=== PATIENT | female | born 1970 | race Caucasian/White ===

== ENCOUNTER → 2020-07-06 | Outpatient (CLI) | payer OTHER ==
[~2020-07-06] MED LIST: BIRTH CONTROL PILLS; FERROUS SU325 MG/TAB PO; PREDNISONE20 MG PO; PRENATAL VITAMI1 TA5 PO
== END ==
LOC: MC.RAD 13:10
DX: Z12.31 Encounter for screening mammogram for malignant neoplasm of breast (principal)

== ENCOUNTER 2023-08-15 06:43 | Day surgery (SDC) | payer BC ==
[~2023-08-15] VITALS: Ht 175.3 cm; Wt 81.6 kg
[~2023-08-15 06:43] MED LIST changes: +LR 1,000 ML IV SCH; +Ondansetron 4 MG/2 ML VIAL IV PRN
[2023-08-15] MEDS ORDERED: ZYRTEC 10MG10 MG PO (07:07)
[2023-08-15 07:34] VITALS: BP 122/86; PULSE 70; TEMP 97.9
[2023-08-15 09:05] VITALS: BP 107/78; PULSE 75; TEMP 97.6
[2023-08-15 09:20] VITALS: BP 116/81; PULSE 60
--- NOTE | 2023-08-15 09:40 | NUR ---
0905-PT TO BAY 4 PER CART FROM PROCEDURE ROOM. REPORT RECEIVED. VS OBTAINED. CALL LIGHT WITHIN REACH. 0906-DR DIALLO AT BEDSIDE DISCUSSING FINDINGS WITH PT AND HER MOTHER. 0910-PT TOLERATING WATER AND JELLO. 0920-DISCHARE EDUCATION COMPLETED WITH PT AND HER MOTHER. VERBALIZED UNDERSTANDING OF HOME AND FOLLOW UP CARE. ALL QUESTIONS ANSWERED. DISCHARGE PAPERWORK GIVEN TO PT. 0925-IV DC'D AT THIS TIME. PT ABLE TO DRESS SELF WITHOUT ASSISTANCE. 0940-PT OFF UNIT PER WHEELCHAIR. PT DISCHARGED TO HOME WITH HER MOTHER PER PERSONAL VEHICLE.
== END 2023-08-15 09:40 | disposition home or self-care (01) ==
LOC: SDCO 06:43
DX: K58.1 Irritable bowel syndrome with constipation (principal); K58.0 Irritable bowel syndrome with diarrhea; E78.5 Hyperlipidemia, unspecified; F33.9 Major depressive disorder, recurrent, unspecified; J30.9 Allergic rhinitis, unspecified; M25.50 Pain in unspecified joint; E66.3 Overweight; Z68.27 Body mass index [BMI] 27.0-27.9, adult
CPT/HCPCS: J2704; J7120